=== PATIENT | female | born 1935 | race Caucasian/White ===

== ENCOUNTER → 2017-12-21 | Outpatient (CLI) | payer MEDICARE ==
[~2017-12-21] MED LIST: ANTIOBIOTIC IV; CALC-362 PO; HYDR2TAB29 PO; IBUP200C8 PO; IMMUNE PO; IODI150T PO; METH500C3 PO; MORP-52 PO; MULTIPLE PO; MULTIVITAMINS PO; PHYT1CAP2 PO; PT WILL BRING LIST; THIA100T27 PO; TRAM50TA2 PO; TURM500C7 PO; VIT1CAPS6 PO; [UNRECOGNIZED DRUG - OTHER] PO; [UNRECOGNIZED DRUG - OTHER] PO; [UNRECOGNIZED DRUG - OTHER] PO
== END | disposition home or self-care (01) ==
LOC: CFH 07:20
DX: I71.4 Abdominal aortic aneurysm, without rupture (principal)
CPT/HCPCS: 93978

== ENCOUNTER 2020-03-10 14:10 | Emergency (ER) | payer MEDICARE, OTHER ==
[~2020-03-10] VITALS: Ht 167.6 cm; Wt 61.6 kg
--- NOTE | 2020-03-10 14:57 | NUR ---
REPORT FROM IVAN MOODY. PT CARE RESPONSIBILITIES ASSUMED.
[2020-03-10] MEDS ORDERED: ONDANSETRON 2MG/ML, 2ML IVPush ONE (15:00)
[2020-03-10] MEDS ORDERED: KETOROLAC 30 MG/1 ML IVPush ONE (15:00)
[2020-03-10] MEDS ORDERED: MORPHINE SULFATE 4 MG/ML, 1ML IVPush PRN (15:00)
[2020-03-10] MEDS ORDERED: SODIUM CHLORIDE FLUSH 10ML SYR IVF ONE (15:00)
[2020-03-10 15:10] LABS: HCT (SEDRATE) 32.9 % (34.6-47.8)
[2020-03-10 15:11] LABS: MEAN CORPUSCULAR HEMOGLOBIN 30.3 pg (27.0-34.8); MEAN CORPUSCULAR HGB CONC 32.2 g/dL (32.4-35.8); MEAN PLATELET VOLUME 7.8 fL (7.4-10.4); PLATELET COUNT 246 x10^3/uL (130-400); RED BLOOD COUNT 3.53 x10^6/uL (3.82-5.3); RED CELL DISTRIBUTION WIDTH 13.9 % (9.6-15.2)
[2020-03-10 15:18] LABS: ALANINE AMINOTRANSFERASE 17 U/L (12-78); ALBUMIN 3.8 g/dL (3.4-5.0); ANION GAP 6 mmol/L (5-15); CALCIUM 9.5 mg/dL (8.5-10.1); CHLORIDE 113 mmol/L (98-107); CREATININE 1.04 mg/dL (0.55-1.02)
[2020-03-10 15:25] LABS: ALKALINE PHOSPHATASE 61 U/L (45-117); BILIRUBIN,TOTAL 1.5 mg/dL (0.2-1.0); TOTAL PROTEIN 7.9 g/dL (6.4-8.2)
[2020-03-10 15:47] LABS: BASOPHILS # (AUTO) 0.02 x10^3/uL (0-0.1); BASOPHILS % (AUTO) 0 % (0-1); EOSINOPHILS # (AUTO) 0.08 x10^3/uL (0-0.4); EOSINOPHILS % (AUTO) 1 % (1-7); LYMPHOCYTES # (AUTO) 0.81 x10^3/uL (1-3.4); LYMPHOCYTES % (AUTO) 8 % (22-44); MD SCAN; MONOCYTES # (AUTO) 0.93 x10^3/uL (0.2-0.8); MONOCYTES % (AUTO) 9 % (2-9); NEUTROPHILS # (AUTO) 8.73 x10^3/uL (1.8-6.8); NEUTROPHILS % (AUTO) 83 % (42-75)
[2020-03-10 16:15] VITALS: BP 185/90
== END 2020-03-10 16:16 | disposition home or self-care (01) ==
LOC: ED 16:14
DX: M19.031 Primary osteoarthritis, right wrist (principal); M06.9 Rheumatoid arthritis, unspecified; D72.829 Elevated white blood cell count, unspecified; D64.9 Anemia, unspecified; N28.9 Disorder of kidney and ureter, unspecified; M79.89 Other specified soft tissue disorders
CPT/HCPCS: 36415; 80053; 85025; 85651; 86140; 99283

== ENCOUNTER 2020-07-14 08:51 | Emergency (ER) | payer MEDICARE ==
[~2020-07-14] VITALS: Ht 167.6 cm; Wt 63.5 kg
[2020-07-14 08:54] VITALS: BP 140/72
--- NOTE | 2020-07-14 11:18 | NUR ---
XRAYS COMPLETE, PT REFUSES REPEAT VS. PT GIVEN DC INSTRUCTIONS, PT A&O, RESPS EVEN AND UNLABORED, AMBULATORY TO DC DESK WITH STEADY GAIT USING OWN CANE. NO COMPLAINT AT DC, PT DECLINED PAIN MEDICINE DURING ED VISIT.
== END 2020-07-14 11:14 | disposition home or self-care (01) ==
LOC: ED 10:50
DX: S76.211A Strain of adductor muscle, fascia and tendon of right thigh, initial encounter (principal); Z96.641 Presence of right artificial hip joint; X58.XXXA Exposure to other specified factors, initial encounter; Y93.89 Activity, other specified; Y92.89 Other specified places as the place of occurrence of the external cause; Y99.8 Other external cause status
CPT/HCPCS: 72170; 99284